=== PATIENT | female | born 1960 | race Caucasian/White ===

== ENCOUNTER 2024-07-12 09:29 | Day surgery (SDC) | payer OTHER ==
[2024-07-12] MEDS ORDERED: Midazolam 1 MG/ML 2 ML SDV IV ONE (09:30)
[2024-07-12] MEDS ORDERED: fentaNYL 100 MCG/2 ML SDV IV ONE (09:30)
[2024-07-12] MEDS ORDERED: Sodium Chloride 0.9% 10 ML Syringe FLUSH PRN (09:45)
[2024-07-12] MEDS: Lactated Ringers 1,000 ML IV PRN (10:30)
[2024-07-12] MEDS: acetaZOLAMIDE 500 MG Cap.ER PO ONE (11:26)
== END 2024-07-12 11:52 | disposition home or self-care (01) ==
LOC: FB.SDS 09:29
PROVIDERS: ATTEND Ophthalmology
DX: E11.36 Type 2 diabetes mellitus with diabetic cataract (principal); H26.9 Unspecified cataract; I10 Essential (primary) hypertension; E78.00 Pure hypercholesterolemia, unspecified; K21.9 Gastro-esophageal reflux disease without esophagitis; E66.9 Obesity, unspecified; Z79.4 Long term (current) use of insulin; Z88.8 Allergy status to other drugs, medicaments and biological substances; Z91.09 Other allergy status, other than to drugs and biological substances; Z79.82 Long term (current) use of aspirin; Z79.84 Long term (current) use of oral hypoglycemic drugs; Z68.42 Body mass index [BMI] 45.0-49.9, adult; Z79.899 Other long term (current) drug therapy
CPT/HCPCS: 82947; A9270-GY; J2250; J3010; J7120; V2632

== ENCOUNTER 2024-07-26 08:50 | Day surgery (SDC) | payer OTHER ==
[2024-07-26] MEDS ORDERED: Midazolam 1 MG/ML 2 ML SDV IV ONE (08:51)
[2024-07-26] MEDS ORDERED: fentaNYL 100 MCG/2 ML SDV IV ONE (08:51)
[2024-07-26] MEDS ORDERED: Sodium Chloride 0.9% 10 ML Syringe FLUSH PRN (09:00)
[2024-07-26] MEDS: Lactated Ringers 1,000 ML IV PRN (09:33)
[2024-07-26] MEDS: acetaZOLAMIDE 500 MG Cap.ER PO ONE (10:46)
== END 2024-07-26 11:00 | disposition home or self-care (01) ==
LOC: FB.SDS 08:50
PROVIDERS: ATTEND Ophthalmology
DX: E11.36 Type 2 diabetes mellitus with diabetic cataract (principal); I10 Essential (primary) hypertension; K21.9 Gastro-esophageal reflux disease without esophagitis; E78.00 Pure hypercholesterolemia, unspecified; Z79.899 Other long term (current) drug therapy
CPT/HCPCS: 82947; A9270-GY; J2250; J3010; J7120; V2632